=== PATIENT | female | born 1980 | race Caucasian/White ===

== ENCOUNTER 2020-11-18 11:55 | Emergency (ER) | payer MEDICAID ==
[~2020-11-18] VITALS: Ht 167.6 cm; Wt 112.0 kg
[~2020-11-18 11:55] MED LIST: BCP; IBUP200T49 PO; OXYC1TAB14 PO
[2020-11-18] MEDS ORDERED: FAMOTIDINE 20 MG TABLET PO ONE (12:30)
--- NOTE | 2020-11-18 14:44 | NUR ---
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
[2020-11-18] MEDS ORDERED: FAMOTIDINE 20 MG TABLET ONE (14:48)
[2020-11-18] MEDS ORDERED: hydrOXyzine 50MG TABLET ONE (14:48)
--- NOTE | 2020-11-18 14:54 | NUR ---
PT AMBULATORY TO ROOM 14 W/ C/O RASH ALL OVER HER BODY STARTED LAST YEAR. PT STATES IT STARTED PRIOR TO SUMMER 2019 AND WAS PUT ON AN ANTIFUNGAL WITHOUT SUCCESS. CURRENTLY ON PEPCID AND ATARAX W/O SUCCESS. RASH NOTED THROUGHOUT BODY. PT RESTING ON GURNEY. NADN. MONITORS APPLIED. VSS. WARM BLANKET PROVIDED. CALL LIGHT IN REACH.
[2020-11-18 15:58] VITALS: BP 112/72
--- NOTE | 2020-11-18 15:59 | NUR ---
PT RESTING ON GURNEY. NADN. DUGGAN.
== END 2020-11-18 16:24 | disposition home or self-care (01) ==
LOC: ED 12:25
DX: L50.9 Urticaria, unspecified (principal); R21 Rash and other nonspecific skin eruption
CPT/HCPCS: 99284; J7512; Q0177